=== PATIENT | male | born 1990 | race African-American/Black ===

== ENCOUNTER 2016-10-23 12:37 | Emergency (ER) | payer MEDICARE, OTHER ==
[~2016-10-23] VITALS: Ht 170.2 cm; Wt 85.0 kg
[~2016-10-23 12:37] MED LIST: CINA90TA PO; Levaquin; MAGN400C PO; PRE10 PO; PROG PO; SEVE800T7 PO; ZAN150T PO
[2016-10-23 12:42] VITALS: BP 118/76; PULSE 103; RESP 16; O2SAT 98
--- NOTE | 2016-10-23 14:12 | ED.REPORT ---
HPI-General Illness Date of Service October 23, 2016 ED Provider: Dillon Garcia DO The patient is a 25 year old male with history of kidney disease on dialysis and hypertension, who presents to the emergency department concerned he may have accidentally absorbed rat poison. The patient put out rat poison at home earlier today. He did not get the poison close to his mouth but he he did have to break it up into pieces. 1 hour after putting the rat poison he started to feel short of breath and lightheaded. He also noticed palpitations and mild abdominal discomfort. The patient had similar symptoms in the past prior to passing out. In the past it has been due to taking too much fluid off in dialysis. Nursing Notes Stated Complaint: POSS RAT POISONING Chief Complaint: General Complaint Nursing Notes Reviewed: Yes Allergies: Coded Allergies: codeine (Verified Adverse Reaction, Intermediate, 10/23/16) ALREADY HAVING DIFFICULTY WITH NAUSEA AND VOMITING. THIS MEDICATION SHOULD BE AVOIDED Scheduled Cinacalcet HCl (Sensipar) 90 Mg Tablet 90 MG PO HS Magnesium Oxide (Magnesium) 400 Mg Capsule 400 MG PO AM PredniSONE-Expunged Drug, Do Not Renew! (PredniSONE-Expunged Drug, Do Not Renew! ) 10 Mg Tab 15 MG PO AM TAKE WITH FOOD Ranitidine 150 MG Tablet (Zantac 150 MG Tablet) 150 Mg Tab 150 MG PO DAILY Sevelamer Carbonate (Renvela) 800 Mg Tablet 800 MG PO TID Tacrolimus-Expunged Drug, Do Not Renew! (Prograf-Expunged Drug, Do Not Renew!) 0.5 Mg Capsule 2 MG PO BID DOSE=0.05MG/KG (NO HT/WT AVAILABLE AT TIME OF ENTRY) Miscellaneous Medications ([Levaquin]) Take one more dose 10/21, then stop General Time Seen by MD: 14:04 Chief Complaint Other (concern for rat poison absorption) Hx Obtained From: Patient Arrived By: Walk-in Sudden in Onset?: Yes Onset Occurred: 1 - 4 hours ago Symptom Duration: Since onset Location: : Abdomen Quality: Painful Severity: Current: Mild Severity: Maximum: Mild Recent Healthcare: No recent doctor visit, No recent hospitalization Similar Sx Previous: No Past Medical History Past Medical History Notes: Sees Dr. Lonnie Greer (nephrology) at PCP: Dr. Larios Chemistry Tutor: Dr. 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 Thursday, Thursday and Thursday. dialysis thru AV fistula. 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 not currently on any BP medications. 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 Left brachio-cephalic A/V fistula 2. Kidney Biopsy 3. Kidney Transplant Family History HTN Smoking History Never Smoker Social History Other Social History: Good social support, Local resident Ambulatory Status Independent Review of Systems Full Review of Systems Respiratory: Reports: Shortness of breath Cardiovascular: Reports: Palpitations GI: Reports: Abdominal pain (mild) Neurologic: Reports: Lightheaded Complete sys rev & neg: except as marked. Physical Exam Vital Signs Vital Signs Date Time Temp Pulse Resp B/P Pulse Ox O2 Delivery O2 Flow Rate FiO2 10/23/16 16:27 85 14 105/61 100 Room Air 10/23/16 12:42 36.5 103 16 118/76 98 Room Air Initial VS: Reviewed Head / Eyes: Atraumatic, Normocephalic, PERRL ENT: Mucous membranes moist, Conjunctiva normal, No scleral icterus Neck: Supple, Non-tender, Full range of motion Respiratory: No respiratory distress Abdomen / GI: Soft, Non-tender, No guarding, No rebound, No distention Lymphatic: No lymphadenopathy Extremities: Vascular intact, Neuro intact, No swelling, No tenderness Skin: Warm, Dry, No cyanosis Neurologic: Alert, Oriented, Nonfocal Psychiatric: Mood/affect normal, Behavior normal, Normal thought content General/Constitutional: Awake, Alert, Cooperative Heart Rate / Rhythm: Positive: Tachycardia Upper Extremities Upper Extremity / MS: Neurologic intact, Vascular intact Fistula in left upper arm with good thrill. Interpretation & Diagnostics Lab Results Interpretation Result Diagram: 10/23/16 1450 10/23/16 1450 Test 10/23/16 14:50 White Blood Count 3.0th/mm3 (3.8-10.1) Red Blood Count 3.91mil/mm3 (4.40-5.80) Hemoglobin 12.8g/dL (13.8-17.2) Hematocrit 39.2% (41.0-50.0) Mean Corpuscular Volume 100.3fL (81-100) Mean Corpuscular Hemoglobin 32.7pg (27.0-35.0) Mean Corpuscular Hemoglobin Concent 32.7% (32.0-37.0) Red Cell Distribution Width 13.6% (12.3-15.4) Platelet Count 122bil/L (150-400) Neutrophils (%) (Auto) 62.3% (40-74) Lymphocytes (%) (Auto) 29.1% (14-46) Monocytes (%) (Auto) 7.0% (4-12) Eosinophils (%) (Auto) 1.3% (0-5) Basophils (%) (Auto) 0.3% (0-3) Sodium Level 142mEq/L (134-144) Potassium Level 4.5mEq/L (3.5-5.2) Chloride Level 98mEq/L (97-108) Carbon Dioxide Level 26mmol/L (18-29) Blood Urea Nitrogen 38mg/dL (6-20) Creatinine 11.59mg/dL (0.76-1.27) Estimat Glomerular Filtration Rate 6mL/min (>59) Glucose Level 85mg/dL (60-99) Calcium Level 10.0mg/dL (8.5-10.1) Total Bilirubin 0.5mg/dL (0.0-1.2) Aspartate Amino Transf (AST/SGOT) 10U/L (0-50) Alanine Aminotransferase (ALT/SGPT) 7U/L (0-44) Alkaline Phosphatase 230U/L (25-150) Total Protein 8.6g/dL (6.4-8.4) Albumin 4.6g/dL (3.4-5.0) ECG Interpretation ECG Interpretation: Sinus rhythm with a rate of 72 Time: 14:44 Interpreted by: ED physician Re-Eval/Medical Decision Med Decision/Clinical Course Essentially this is a near syncopal episode with a minimal exposure to rat poison. Seems that this may be due to over dialysis, and electro-lytes and EKG are unremarkable. He will be discharged and return and follow-up precautions are given. Source of Hx: Old records Re-Evaluation/Progress Note: Rechecked the patient. Discussed results, diagnosis, and plan for disposition. All questions were addressed. Counseled Regarding: Diagnosis, Lab results, Need for follow-up, When/why to return to ED Discharge & Departure Primary Impression: Near syncope Disposition: Home Discharge Condition All VS Reviewed: Yes Condition: Stable Additional Instructions: Thank you for entrusting us with your care today. Your workup today included an EKG and blood work. Your results are reassuring. Followup with your regular doctor in the next few days for re-evaluation. Seek care sooner for any new or concerning symptoms. Referrals: Ravi Larios MD (PCP) Scribe Attestation Portions of this note were transcribed by Xi Bowie. I, Dr. Garcia personally performed the history, physical exam and medical decision-making; I reviewed and confirmed the accuracy of the information in the transcribed note. Signed by: Kimberly Lim, 10/23/2016 at 1505. copies to: Ravi Larios MD, Timothy S DO October 23, 2016 14:12 Xi Bowie October 23, 2016 14:33
[2016-10-23 15:01] LABS: BASOPHILS % (AUTO) 0.3 % (0-3); EOSINOPHILS % (AUTO) 1.3 % (0-5); Mean Corpuscular Hemoglobin 32.7 pg (27.0-35.0); Mean Corpuscular Volume 100.3 fL (81-100); NEUTROPHILS % (AUTO) 62.3 % (40-74); Platelet Count 122 bil/L (150-400)
[2016-10-23 16:27] VITALS: BP 105/61; PULSE 85; RESP 14; O2SAT 100
== END 2016-10-23 16:28 | disposition home or self-care (01) ==
LOC: SED 12:37
DX: R55 Syncope and collapse (principal); I12.0 Hypertensive chronic kidney disease with stage 5 chronic kidney disease or end stage renal disease; N18.9 Chronic kidney disease, unspecified; E21.3 Hyperparathyroidism, unspecified; D63.1 Anemia in chronic kidney disease; R06.02 Shortness of breath; Z99.2 Dependence on renal dialysis; Z88.5 Allergy status to narcotic agent

== ENCOUNTER 2016-10-24 16:06 | Emergency (ER) | payer MEDICARE, OTHER ==
[~2016-10-24] VITALS: Ht 170.2 cm; Wt 85.0 kg
[2016-10-24 16:24] VITALS: BP 89/60; PULSE 112; RESP 20; O2SAT 98
[2016-10-24 19:25] LABS: Mean Corpuscular Volume 101 fL (81-100)
[2016-10-24 19:26] LABS: BASOPHILS % (AUTO) 0 % (0-3); EOSINOPHILS % (AUTO) 1 % (0-5); MONOCYTES % (AUTO) 7 % (4-12); Mean Corpuscular Hemoglobin 32.6 pg (27.0-35.0); NEUTROPHILS % (AUTO) 46 % (40-74); Platelet Count 138 bil/L (150-400)
--- NOTE | 2016-10-24 20:38 | ED.REPORT ---
HPI-General Illness Date of Service October 24, 2016 ED Provider: Doc,Ed MD The patient is a 25 year old male with history of kidney disease on dialysis, hyperactive parathyroid, and hypertension, who presents to the emergency department complaining of bilateral flank pain that began yesterday. The pain radiates into his abdomen. The pain is spasmatic and worse with twisting. He denies any known injury or trauma. He denies nausea, vomiting, diarrhea, fever or chills. He last dialyzed this morning. Nursing Notes Stated Complaint: ABDOMINAL AND LOWER BACK PAIN Chief Complaint: Male Abdominal Pain Nursing Notes Reviewed: Yes Allergies: Coded Allergies: codeine (Verified Adverse Reaction, Intermediate, 10/23/16) ALREADY HAVING DIFFICULTY WITH NAUSEA AND VOMITING. THIS MEDICATION SHOULD BE AVOIDED Scheduled Cinacalcet HCl (Sensipar) 90 Mg Tablet 90 MG PO HS Magnesium Oxide (Magnesium) 400 Mg Capsule 400 MG PO AM PredniSONE-Expunged Drug, Do Not Renew! (PredniSONE-Expunged Drug, Do Not Renew! ) 10 Mg Tab 15 MG PO AM TAKE WITH FOOD Ranitidine 150 MG Tablet (Zantac 150 MG Tablet) 150 Mg Tab 150 MG PO DAILY Sevelamer Carbonate (Renvela) 800 Mg Tablet 800 MG PO TID Tacrolimus-Expunged Drug, Do Not Renew! (Prograf-Expunged Drug, Do Not Renew!) 0.5 Mg Capsule 2 MG PO BID DOSE=0.05MG/KG (NO HT/WT AVAILABLE AT TIME OF ENTRY) Miscellaneous Medications ([Levaquin]) Take one more dose 10/21, then stop General Time Seen by MD: 20:38 Chief Complaint Other (bilateral flank pain) Hx Obtained From: Patient Arrived By: Walk-in Sudden in Onset?: Yes Onset Occurred: Yesterday Symptom Duration: Since onset Location: : Back Quality: Painful Radiation: : Abdomen Severity: Current: Moderate Severity: Maximum: Moderate Recent Healthcare: No recent hospitalization, Recent doctor visit Similar Sx Previous: No Past Medical History Past Medical History Notes: Sees Dr. Lonnie Greer (nephrology) at PCP: Dr. Larios Security Systems Administrator: Dr. 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 Thursday, Thursday and Thursday. dialysis thru AV fistula. 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 not currently on any BP medications. 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 Left brachio-cephalic A/V fistula 2. Kidney Biopsy 3. Kidney Transplant Family History HTN Smoking History Never Smoker Social History Other Social History: Good social support, Local resident Ambulatory Status Independent Review of Systems Full Review of Systems GI: Reports: Abdominal pain, Denies: Diarrhea, Nausea, Vomiting Male: Reports Flank pain Musculoskeletal: Reports: Back pain Complete sys rev & neg: except as marked. Physical Exam Vital Signs Vital Signs Date Time Temp Pulse Resp B/P Pulse Ox O2 Delivery O2 Flow Rate FiO2 10/24/16 16:24 36.4 112 20 89/60 98 Room Air Initial VS: Reviewed Interpretation & Diagnostics Lab Results Interpretation Result Diagram: 10/24/16 1739 Test 10/24/16 17:39 White Blood Count 3.2th/mm3 (3.8-10.1) Red Blood Count 3.89mil/mm3 (4.40-5.80) Hemoglobin 12.7g/dL (13.8-17.2) Hematocrit 39.3% (41.0-50.0) Mean Corpuscular Volume 101fL (81-100) Mean Corpuscular Hemoglobin 32.6pg (27.0-35.0) Mean Corpuscular Hemoglobin Concent 32.3% (32.0-37.0) Red Cell Distribution Width 13.5% (12.3-15.4) Platelet Count 138bil/L (150-400) Neutrophils (%) (Auto) 46% (40-74) Lymphocytes (%) (Auto) 46% (14-46) Monocytes (%) (Auto) 7% (4-12) Eosinophils (%) (Auto) 1% (0-5) Basophils (%) (Auto) 0% (0-3) Re-Eval/Medical Decision Source of Hx: Old records Counseled Regarding: Diagnosis Discharge & Departure Discharge Condition All VS Reviewed: Yes Condition: Stable Referrals: Ravi Larios MD (PCP) Scribe Attestation Portions of this note were transcribed by Xi Bowie. IDr. Perez personally performed the history, physical exam and medical decision-making; I reviewed and confirmed the accuracy of the information in the transcribed note. Signed by: Kimberly Lim, 10/24/2016 at [Time]. copies to: Ravi Larios MD, Gary R DO October 24, 2016 20:38 Xi Bowie October 24, 2016 20:46
[2016-10-24 21:10] LABS: Magnesium 1.7 mg/dL (1.6-2.6)
--- NOTE | 2016-10-24 21:25 | ED.REPORT ---
HPI-Abd Pain M Under 40 Date of Service October 24, 2016 ED Provider: Shun Larry DO A 25 year old male with a history of hypertension and CKD on dialysis presents to the ED with lower abdomen and lower back pain onset two days ago. The pain is exacerbated by lateral rotation of the trunk. The patient denies nausea, vomiting, diarrhea, weakness, numbness, bowel incontinence, urinary incontinence , recent injury/trauma, or other symptoms. He was seen in the ED yesterday after a near-syncopal episode. The patient also dialyzed yesterday. He makes no urine at baseline. Nursing Notes Stated Complaint: ABDOMINAL AND LOWER BACK PAIN Chief Complaint: Male Abdominal Pain Nursing Notes Reviewed: Yes Allergies: Coded Allergies: codeine (Verified Adverse Reaction, Intermediate, 10/23/16) ALREADY HAVING DIFFICULTY WITH NAUSEA AND VOMITING. THIS MEDICATION SHOULD BE AVOIDED Scheduled Cinacalcet HCl (Sensipar) 90 Mg Tablet 90 MG PO HS Magnesium Oxide (Magnesium) 400 Mg Capsule 400 MG PO AM PredniSONE-Expunged Drug, Do Not Renew! (PredniSONE-Expunged Drug, Do Not Renew! ) 10 Mg Tab 15 MG PO AM TAKE WITH FOOD Ranitidine 150 MG Tablet (Zantac 150 MG Tablet) 150 Mg Tab 150 MG PO DAILY Sevelamer Carbonate (Renvela) 800 Mg Tablet 800 MG PO TID Tacrolimus-Expunged Drug, Do Not Renew! (Prograf-Expunged Drug, Do Not Renew!) 0.5 Mg Capsule 2 MG PO BID DOSE=0.05MG/KG (NO HT/WT AVAILABLE AT TIME OF ENTRY) Miscellaneous Medications ([Levaquin]) Take one more dose 10/21, then stop General Time Seen by MD: 21:22 Chief Complaint Abdominal pain, Other (Back Pain) Hx Obtained From: Patient Arrived By: Walk-in Onset Occurred: 2 days ago Symptom Duration: Since onset Location: : Abdomen lower: Back (Lower) Quality: Painful Severity: Current: Moderate Severity: Maximum: Moderate Pertinent Negative: Relieved by nothing Recent Healthcare: Recent doctor visit Past Medical History Past Medical History Notes: Sees Dr. Lonnie Greer (nephrology) at PCP: Dr. Larios Medical Associate: Dr. 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 Thursday, Thursday and Thursday. dialysis thru AV fistula. 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 not currently on any BP medications. 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 Left brachio-cephalic A/V fistula 2. Kidney Biopsy 3. Kidney Transplant Family History HTN Smoking History Never Smoker Social History Other Social History: Good social support, Local resident Ambulatory Status Independent Review of Systems Constitutional: Denies: Fever Respiratory: Denies: Non-productive cough, Shortness of breath GI: Reports: Abdominal pain (Lower), Denies: Diarrhea, Nausea, Vomiting Musculoskeletal: Reports: Back pain (Lower) Complete sys rev & neg: except as marked. Neurologic: Denies: Bladder dysfunction, Bowel dysfunction, Numbness, Weakness Physical Exam Initial Vital Signs Vital Signs (First) Date Time Temp Pulse Resp B/P Pulse Ox O2 Delivery O2 Flow Rate FiO2 10/24/16 16:24 36.4 112 20 89/60 98 Room Air Initial VS: Reviewed Head / Eyes: Atraumatic, Normocephalic ENT: Conjunctiva normal, No scleral icterus Neck: Supple, Full range of motion Skin: Warm, Dry, No cyanosis Neurologic: Alert, Oriented, Nonfocal Psychiatric: Mood/affect normal, Behavior normal, Normal thought content General/Constitutional: Awake, Alert, No acute distress Respiratory / Chest: Breath sounds NL, Breath sounds = bilat, No respiratory distress Cardiovascular: Heart rate NL, Regular rhythm, Heart sounds NL Abdomen: Atraumatic, Soft Tenderness/Guarding/Rebound: Positive: Tender RLQ... Back: Atraumatic, Full range of motion Flank / Spine / Paraspinal: Positive: Flank tender R Interpretation & Diagnostics Lab Results Interpretation Result Diagram: 10/24/16 1739 10/24/16 1739 Test 10/24/16 17:39 White Blood Count 3.2th/mm3 (3.8-10.1) Red Blood Count 3.89mil/mm3 (4.40-5.80) Hemoglobin 12.7g/dL (13.8-17.2) Hematocrit 39.3% (41.0-50.0) Mean Corpuscular Volume 101fL (81-100) Mean Corpuscular Hemoglobin 32.6pg (27.0-35.0) Mean Corpuscular Hemoglobin Concent 32.3% (32.0-37.0) Red Cell Distribution Width 13.5% (12.3-15.4) Platelet Count 138bil/L (150-400) Neutrophils (%) (Auto) 46% (40-74) Lymphocytes (%) (Auto) 46% (14-46) Monocytes (%) (Auto) 7% (4-12) Eosinophils (%) (Auto) 1% (0-5) Basophils (%) (Auto) 0% (0-3) Sodium Level 139mEq/L (134-144) Potassium Level 4.4mEq/L (3.5-5.2) Chloride Level 96mEq/L (97-108) Carbon Dioxide Level 24mmol/L (18-29) Blood Urea Nitrogen 21mg/dL (6-20) Creatinine 7.61mg/dL (0.76-1.27) Estimat Glomerular Filtration Rate 9mL/min (>59) Glucose Level 88mg/dL (60-99) Calcium Level 10.3mg/dL (8.5-10.1) Magnesium Level 1.7mg/dL (1.6-2.6) Total Bilirubin 0.4mg/dL (0.0-1.2) Aspartate Amino Transf (AST/SGOT) 14U/L (0-50) Alanine Aminotransferase (ALT/SGPT) 9U/L (0-44) Alkaline Phosphatase 233U/L (25-150) Total Protein 9.2g/dL (6.4-8.4) Albumin 4.7g/dL (3.4-5.0) Lipase 42U/L (13-60) CT Abd / Pelvis Interpretation IMPRESSION: No signs of appendicitis, diverticulitis, mechanical small bowel obstruction. Shrunken atrophic calcified right lower quadrant renal transplant. Other findings above. Transmitted to ED at 10/24/2016 - 11:46:15 PM PDT Study type: Abdominal CT IV contrast Interpretation / Wet Read by: Interpret - Radiologist (Gilma Melton M.D. ) Re-Eval/Medical Decision Source of Hx: Old records Re-Evaluation/Progress #1: Time of Eval: 23:51 Patient Status: Condition improved Re-Evaluation/Progress Note: Patient rechecked. He is feeling better. Re-Evaluation/Progress #2: Time of Eval: 00:05 Patient Status: Condition improved Re-Evaluation/Progress Note: Discussed with patient lab and CT results, diagnosis, and plan for discharge. Follow-up and return to the ER instructions given. Patient agrees with plan for care and all questions were addressed. Consultation : Referral / Consult Name: Shahriar Moss MD Consulted With: Nephrology Call Returned at: 21:40 Amusement Or Recreation Card Checker: Agrees with eval, Agrees with plan Note: Discussed patient's case Counseled Regarding: Diagnosis, Lab results, Need for follow-up, When/why to return to ED Patient Discharge & Departure Primary Impression: Back pain Back pain location: low back pain Chronicity: acute Additional Impression: Abdominal pain Abdominal location: right lower quadrant Qualified Code: R10.31 - Right lower quadrant pain Disposition: Home Discharge Condition All VS Reviewed: Yes Condition: Improved Patient Instructions: Acute Abdominal Pain (ED), Acute Low Back Pain (GEN) Additional Instructions: The CT scan was reassuring. The cause of your pain is uncertain. Off work until Thursday. Do not drink alcohol or drive tonight as you have been given sedating medication. 1-2 Percocet every six hours as needed for pain. Do not drink alcohol, drive, or consume acetaminophen while taking Percocet. Increase the natural fiber in your diet or take a stool softener to prevent constipation. Call the dialysis center tomorrow for dialysis after receiving the contrast today. Dr. Moss is aware that you were seen and received contrast. Call your primary care provider on Thursday for a follow-up appointment. Return to the ER with any new or worsening symptoms. Referrals: Ravi Larios MD (PCP) Shahriar Moss MD Attestation Portions of this note were transcribed by Caitlin Baldwin. I, Dr. Larry, personally performed the history, physical exam, and medical decision-making; I reviewed and confirmed the accuracy of the information in the transcribed note. Signed by: Kimberly Herrera, 10/25/2016, 01:00 copies to: Ravi Larios MD; Shahriar Moss MD, Todd P DO October 24, 2016 21:25 CAITLIN BALDWIN October 24, 2016 21:37
[2016-10-24] MEDS ORDERED: Iohexol 300 mg/mL 30 mL Inj PO ONE (21:30)
[2016-10-24] MEDS ORDERED: HYDROmorphone 0.5 mg/0.5 mL iSecure Syringe IVPUSH PRN (21:30)
[2016-10-24] MEDS ORDERED: fentaNYL-PF 50 mCg/mL 2 mL Inj IVPUSH PRN (21:35)
[2016-10-24 22:00] VITALS: BP 99/60; PULSE 100; RESP 16; O2SAT 98
[2016-10-25] MEDS ORDERED: _oxyCODONE/APAP 5-325 mg Tablet PO PRN (00:15)
[2016-10-25] MEDS ORDERED: Sodium Chloride LOK Flush 10 mL Syringe IVFLUSH SCH (00:30)
[2016-10-25 00:42] VITALS: BP 97/59; PULSE 101; RESP 16; O2SAT 99
--- NOTE | 2016-10-25 09:31 | DRSVH ---
PROCEDURE: CT ABDOMEN AND PELVIS WITH CONTRAST ([id number]) INDICATIONS: RLQ and right flank pain, renal failure is chronic TECHNIQUE: After the administration of oral and intravenous contrast, 5 mm thick sections acquired from the diap hragms to the symphysis. 5 mm thick coronal and sagittal reformats were performed. For radiation do se reduction, the following was used: automated exposure control, adjustment of mA and/or kV accordi ng to patient size. COMPARISON: None. FINDINGS: Image quality: Excellent. ABDOMEN: Lung bases: Lung bases are clear. Heart size is normal. Solid organs: Liver and spleen are normal in size and enhancement. Gallbladder negative. Biliary s ystem is non-dilated. Pancreas enhances normally. No adrenal nodules. Atrophic partially calcified right lower quadrant renal transplant. The kidneys are not visualized. Peritoneum and bowel: Stomach, small bowel, and colon loops are normal in caliber and wall thickness . No free fluid or air. Normal appendix. Possible small hiatal hernia although technically indeterm inate Nodes and vessels: No retroperitoneal or mesenteric adenopathy. Aorta and inferior vena cava are no rmal in caliber. Miscellaneous: No ventral hernias. PELVIS: Genitourinary: Bladder is decompressed therefore unremarkable there is mild wall prominence however t his could be due to collapsed state. Recommend correlation to urinalysis Miscellaneous: No inguinal hernias or adenopathy. Bones: No suspicious bony lesions. No vertebral body compression fractures. IMPRESSION: No acute abnormality seen. Atrophic calcified right lower quadrant renal transplant. Possible bladder wall thickening however this could be due to collapsed state. Recommend correlation to urinalysis as needed. Dictated by: Jean Marie Holt M.D. on 10/25/2016 at 9:19 Approved by: Jean Marie Holt M.D. on 10/25/2016 at 9:30
== END 2016-10-25 00:43 | disposition home or self-care (01) ==
LOC: SED 16:06
DX: M54.5 Low back pain (principal); R10.31 Right lower quadrant pain; I12.0 Hypertensive chronic kidney disease with stage 5 chronic kidney disease or end stage renal disease; N18.9 Chronic kidney disease, unspecified; Z88.5 Allergy status to narcotic agent; Z94.0 Kidney transplant status
CPT/HCPCS: 36415; 74177; 80053; 83690; 83735; 85025; 96374; 99285; J3010; Q9967

== ENCOUNTER 2016-10-30 10:23 | Emergency (ER) | payer MEDICARE, OTHER ==
[~2016-10-30] VITALS: Ht 170.2 cm; Wt 85.0 kg
[2016-10-30 10:25] VITALS: BP 108/73; PULSE 100; RESP 12; O2SAT 100
--- NOTE | 2016-10-30 10:41 | ED.REPORT ---
HPI-Chest Pain Under 40 Date of Service October 30, 2016 ED Provider: Didier Killian MD The patient is a 25 year old male with history of kidney disease on dialysis, hyperparathyroidism and hypertension, who presents to the emergency department complaining of chest pain that has been intermittent over the last few days. The pain is located to his LUQ/lower left chest and sometimes radiates into his epigastric/substernal region. The episodes last from a few minutes up to 30 minutes. Nothing seems to bring on the episodes. At most severe his pain has been an 8/10. He is not currently in any pain. With the episodes he has also noticed some shortness of breath. His symptoms are not worse with exertion. He denies recent injuries or trauma. He denies extremity pain, back pain, nausea, vomiting, fever, cough, or diaphoresis. He last dialyzed this morning. Nursing Notes Stated Complaint: CHEST PAIN Chief Complaint: Chest Pain Nursing Notes Reviewed: Yes ([facility] not reconciled) Allergies: Coded Allergies: codeine (Verified Adverse Reaction, Intermediate, 10/23/16) ALREADY HAVING DIFFICULTY WITH NAUSEA AND VOMITING. THIS MEDICATION SHOULD BE AVOIDED Scheduled Cinacalcet HCl (Sensipar) 90 Mg Tablet 90 MG PO HS Magnesium Oxide (Magnesium) 400 Mg Capsule 400 MG PO AM PredniSONE-Expunged Drug, Do Not Renew! (PredniSONE-Expunged Drug, Do Not Renew! ) 10 Mg Tab 15 MG PO AM TAKE WITH FOOD Ranitidine 150 MG Tablet (Zantac 150 MG Tablet) 150 Mg Tab 150 MG PO DAILY Sevelamer Carbonate (Renvela) 800 Mg Tablet 800 MG PO TID Tacrolimus-Expunged Drug, Do Not Renew! (Prograf-Expunged Drug, Do Not Renew!) 0.5 Mg Capsule 2 MG PO BID DOSE=0.05MG/KG (NO HT/WT AVAILABLE AT TIME OF ENTRY) Miscellaneous Medications ([Levaquin]) Take one more dose 10/21, then stop General Time Seen by MD: 10:35 Chief Complaint Chest pain Hx Obtained From: Patient Arrived By: Walk-in Sudden in Onset?: No Onset Occurred: 3 days ago Symptom Duration: Intermittent Location: : Chest left Quality: Painful Radiation: : Abdomen (epigastric) Severity: Current: No pain currently Severity: Maximum: Pain level 8 out of 10 Recent Healthcare: No recent hospitalization, Recent doctor visit Similar Sx Previous: Yes Past Medical History Past Medical History Notes: Sees Dr. Lonnie Greer (nephrology) at PCP: Dr. Larios Plant [employer] Professor: Dr. 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 Thursday, Thursday and Thursday. dialysis thru AV fistula. 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 not currently on any BP medications. 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 Left brachio-cephalic A/V fistula 2. Kidney Biopsy 3. Kidney Transplant Family History HTN Smoking History Never Smoker Social History Drug Use: Denies drug use Other Social History: Good social support, Frequent ED visitor, Local resident Ambulatory Status Independent Review of Systems Constitutional: Denies: Fever Respiratory: Reports: Shortness of breath, Denies: Non-productive cough Cardiovascular: Reports: Chest pain GI: Reports: Abdominal pain, Denies: Nausea, Vomiting Musculoskeletal: Denies: Extremity pain Skin: Denies Diaphoresis Complete sys rev & neg: except as marked. Physical Exam Initial Vital Signs Vital Signs (First) Date Time Temp Pulse Resp B/P Pulse Ox O2 Delivery O2 Flow Rate FiO2 10/30/16 10:25 36.6 100 12 108/73 100 Room Air Initial VS: Reviewed, Vital signs normal Head / Eyes: Atraumatic, Normocephalic, PERRL ENT: Mucous membranes moist, Conjunctiva normal, No scleral icterus Neck: Supple, Non-tender, Full range of motion Abdomen / GI: Soft, Non-tender, No guarding, No rebound, No distention Lymphatic: No lymphadenopathy Extremities: Vascular intact, Neuro intact, No swelling, No tenderness Skin: Warm, Dry, No cyanosis Neurologic: Alert, Oriented, Nonfocal Psychiatric: Mood/affect normal, Behavior normal, Normal thought content General/Constitutional: Awake, Alert, No acute distress, Cooperative Respiratory / Chest: Atraumatic, Breath sounds NL, Breath sounds = bilat, No respiratory distress, No rales, No rhonchi, No wheezing, No chest tenderness Cardiovascular: Heart rate NL, Regular rhythm, Heart sounds NL, No gallop, No murmurs, No rubs, Peripheral circulation NL, Pulses = bilaterally, No gross BP differential Upper Extremity / MS: Neurologic intact, Vascular intact AV fistula in left upper extremity. Interpretation & Diagnostics Lab Results Interpretation Result Diagram: 10/30/16 1054 10/30/16 1054 Test 10/30/16 10:54 10/30/16 11:06 White Blood Count 2.7th/mm3 (3.8-10.1) Red Blood Count 3.91mil/mm3 (4.40-5.80) Hemoglobin 12.7g/dL (13.8-17.2) Hematocrit 38.7% (41.0-50.0) Mean Corpuscular Volume 99.0fL (81-100) Mean Corpuscular Hemoglobin 32.5pg (27.0-35.0) Mean Corpuscular Hemoglobin Concent 32.8% (32.0-37.0) Red Cell Distribution Width 12.9% (12.3-15.4) Platelet Count 117bil/L (150-400) Neutrophils (%) (Auto) 41.9% (40-74) Lymphocytes (%) (Auto) 47.4% (14-46) Monocytes (%) (Auto) 7.8% (4-12) Eosinophils (%) (Auto) 2.2% (0-5) Basophils (%) (Auto) 0.7% (0-3) Sodium Level 138mEq/L (134-144) Potassium Level 3.8mEq/L (3.5-5.2) Chloride Level 94mEq/L (97-108) Carbon Dioxide Level 28mmol/L (18-29) Blood Urea Nitrogen 9mg/dL (6-20) Creatinine 4.09mg/dL (0.76-1.27) Estimat Glomerular Filtration Rate 19mL/min (>59) Glucose Level 88mg/dL (60-99) Calcium Level 9.9mg/dL (8.5-10.1) Total Bilirubin 0.5mg/dL (0.0-1.2) Aspartate Amino Transf (AST/SGOT) 19U/L (0-50) Alanine Aminotransferase (ALT/SGPT) 14U/L (0-44) Alkaline Phosphatase 258U/L (25-150) Troponin T 0.010ug/L (0.0-0.011) Total Protein 9.0g/dL (6.4-8.4) Albumin 4.5g/dL (3.4-5.0) Hold Martin Top Tube Received (Received) Lab Results Interpretation: She nonspecific leukocytosis CMP chronic renal failure Troponin normal (and in the setting of multiple days of symptoms, serial biomarkers are not indicated) ECG Interpretation ECG Interpretation: Sinus rhythm with a rate of 81 Time: 10:48 Interpreted by: ED physician X-Ray Chest Interpretation View: 1 view Interpretation / Wet Read by: Wet read ED physician NL X-Ray Chest Findings: No infiltrate, No acute disease Re-Eval/Medical Decision Med Decision/Clinical Course This is a 25-year-old male does have 3 renal failure on dialysis who presents to get "checked out". 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 He has no cardiac risk factors beyond the dialysis and hypertension-he has no PE risk factors or clinical features suggest venous thromboembolism. He has had no fever, cough, shortness of breath. His exam is normal. His EKG is normal. His chest x-ray is normal. His blood work reveals only the renal insufficiency. His troponin is negative, with multiple days of symptoms, atypical presentation, the patient is a low heart score and is appropriate for discharge. Routine precautions were reviewed. Patient's discharge in good condition. Source of Hx: Old records Re-Evaluation/Progress : Time of Eval: 11:44 Re-Evaluation/Progress Note: Rechecked the patient. Discussed results, diagnosis, and plan for discharge. All questions were addressed. Differential Diagnosis: Positive: Chest pain, acute, Negative: Acute coronary syndrome, Acute myocardial infarct, Dysrhythmia, Esophageal rupture, Gun shot wound chest, Hypertroph cardiomyopathy, Pneumonia, Pneumothorax, Pulmonary edema, Pulmonary embolism, Stab wound chest Counseled Regarding: Diagnosis, Lab results, Need for follow-up, When/why to return to ED Discharge & Departure Primary Impression: Chest pain Chest pain type: unspecified Qualified Code: R07.9 - Chest pain, unspecified Disposition: Home Discharge Condition All VS Reviewed: Yes Condition: Stable Additional Instructions: 1. A dangerous cause of the chest discomfort was not identified. 2. Your x-ray, EKG and troponin were all normal-there are no markers are findings suggest a heart condition. 3. We are not finding any reason to agency legal counsel or avoid your scheduled vacation. 4. We expect symptoms to improve with time in this setting. 5. Continue current care and activities. 6. If he developed new or worsening symptoms, fever, difficulty breathing, worsening shortness of breath, etc.-you should be seen in recheck - although this is not expected. Referrals: Ravi Larios MD (PCP) Scribe Attestation Portions of this note were transcribed by Xi Bowie. I, Dr. Killian personally performed the history, physical exam and medical decision-making; I reviewed and confirmed the accuracy of the information in the transcribed note. Signed by: Kimberly Lim, 10/30/2016 at 1215. copies to: Ravi Larios MD, Matthew F MD October 30, 2016 10:41 Xi Bowie October 30, 2016 10:50
[2016-10-30 10:57] LABS: BASOPHILS % (AUTO) 0.7 % (0-3); EOSINOPHILS % (AUTO) 2.2 % (0-5); MONOCYTES % (AUTO) 7.8 % (4-12); Mean Corpuscular Hemoglobin 32.5 pg (27.0-35.0); NEUTROPHILS % (AUTO) 41.9 % (40-74); Platelet Count 117 bil/L (150-400)
[2016-10-30 11:18] LABS: TROPONIN T 0.01 ug/L (0.0-0.011)
[2016-10-30 11:54] VITALS: BP 104/54; PULSE 80; RESP 15; O2SAT 100
--- NOTE | 2016-10-30 12:06 | DRSVH ---
PROCEDURE: X-RAY CHEST ONE VIEW, PORTABLE ([id number]) INDICATIONS: CHEST PAIN TECHNIQUE: One view of the chest was acquired. COMPARISON: [facility], CR, CHEST 2VW, 06/28/2014, 19:05. FINDINGS: Surgical changes and devices: None. Lungs and pleura: No pleural effusions or pneumothorax. Lungs are clear. Mediastinum: Mediastinal contours appear normal. Heart size is normal. Bones and chest wall: No suspicious bony lesions. Overlying soft tissues appear unremarkable. IMPRESSION: Negative chest. No acute cardiopulmonary process is evident. Dictated by: Franco Hutchison M.D. on 10/30/2016 at 11:04 Approved by: Franco Hutchison M.D. on 10/30/2016 at 11:04
== END 2016-10-30 11:55 | disposition home or self-care (01) ==
LOC: SED 10:23
DX: R07.9 Chest pain, unspecified (principal); I12.9 Hypertensive chronic kidney disease with stage 1 through stage 4 chronic kidney disease, or unspecified chronic kidney disease; N18.9 Chronic kidney disease, unspecified; D63.1 Anemia in chronic kidney disease; N25.81 Secondary hyperparathyroidism of renal origin; Z99.2 Dependence on renal dialysis; Z94.0 Kidney transplant status; Z79.52 Long term (current) use of systemic steroids; Z88.5 Allergy status to narcotic agent

== ENCOUNTER 2016-11-10 08:07 | Emergency (ER) | payer MEDICARE, OTHER ==
[~2016-11-10] VITALS: Ht 170.2 cm; Wt 86.0 kg
[2016-11-10 08:15] VITALS: BP 127/70; PULSE 86; RESP 15; O2SAT 100
--- NOTE | 2016-11-10 08:23 | ED.REPORT ---
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 Oxygen levels were stable while at dialysis. He has had "chest discomfort" for the past 3 hrs and it progressed to pain about prison through dialysis. He has been experiencing dull, chest pressure for 5 days. Upon examination at the ED, pt is still experiencing " chest pressure" but not as severe as when he was at dialysis. He was seen at the ED in [place] on Thursday for similar symptoms with no acute findings. Pt was at [facility] on 10/30/16 for similar symptoms at which time there were no acute findings. Nursing Notes Stated Complaint: CHEST PAIN Chief Complaint: Chest Pain Nursing Notes Reviewed: Yes Allergies: Coded Allergies: codeine (Verified Adverse Reaction, Intermediate, 10/23/16) ALREADY HAVING DIFFICULTY WITH NAUSEA AND VOMITING. THIS MEDICATION SHOULD BE AVOIDED Scheduled Cinacalcet HCl (Sensipar) 90 Mg Tablet 90 MG PO HS Magnesium Oxide (Magnesium) 400 Mg Capsule 400 MG PO AM Pantoprazole DR (Protonix) 40 Mg Tablet 40 MG PO DAILY PredniSONE-Expunged Drug, Do Not Renew! (PredniSONE-Expunged Drug, Do Not Renew! ) 10 Mg Tab 15 MG PO AM TAKE WITH FOOD Ranitidine (Ranitidine) 150 Mg Capsule 150 MG PO BID Ranitidine 150 MG Tablet (Zantac 150 MG Tablet) 150 Mg Tab 150 MG PO DAILY Sevelamer Carbonate (Renvela) 800 Mg Tablet 800 MG PO TID Tacrolimus-Expunged Drug, Do Not Renew! (Prograf-Expunged Drug, Do Not Renew!) 0.5 Mg Capsule 2 MG PO BID DOSE=0.05MG/KG (NO HT/WT AVAILABLE AT TIME OF ENTRY) Miscellaneous Medications ([Levaquin]) Take one more dose 10/21, then stop General Time Seen by MD: 08:22 Chief Complaint Chest pain Hx Obtained From: Patient Arrived By: Ambulance Sudden in Onset?: Yes Onset Occurred: Just prior to arrival Symptom Duration: Since onset Location: : Chest left Quality: Pressure Severity: Current: Mild Associated with: Reports: Shortness of breath Recent Healthcare: Recent doctor visit Similar Sx Previous: Yes Past Medical History Past Medical History Notes: Sees Dr. Lonnie Greer (nephrology) at PCP: Dr. Larios [employer] Consultant: Dr. 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 Thursday, Thursday and Thursday. dialysis thru AV fistula. 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 not currently on any BP medications. 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 Left brachio-cephalic A/V fistula 2. Kidney Biopsy 3. Kidney Transplant Family History HTN Smoking History Never Smoker Social History Drug Use: Denies drug use Other Social History: Good social support, Frequent ED visitor, Local resident Ambulatory Status Independent Review of Systems Respiratory: Reports: Shortness of breath Cardiovascular: Reports: Chest pain Musculoskeletal: Denies: Extremity pain, Joint pain Neurologic: Denies: Change LOC, Dizziness, Lightheaded, Weakness Complete sys rev & neg: except as marked. Physical Exam Physical Exam Notes: Initial Vital Signs Vital Signs (First) Date Time Temp Pulse Resp B/P Pulse Ox O2 Delivery O2 Flow Rate FiO2 11/10/16 08:15 36.8 86 15 127/70 100 Room Air 11/10/16 09:03 2 reviewed Initial VS: Reviewed General/Constitutional: Awake, Alert, Cooperative Distress / Hydration: Positive: Distress mild Respiratory / Chest: Atraumatic, Breath sounds NL, Breath sounds = bilat, No respiratory distress, No rales, No rhonchi, No wheezing Cardiovascular: Heart rate NL, Regular rhythm, Heart sounds NL, No gallop, No murmurs, No rubs Neck: Atraumatic, Supple Abdomen: Atraumatic, Soft, Non-tender Back: Atraumatic, Inspection NL, Full range of motion Lower Extremity / Pelvis / MS: Full range of motion, No swelling, No deformity Skin: Warm, Dry Neurologic: Oriented X3, Speech NL, No motor deficits Head / Eyes: Atraumatic, Normocephalic, PERRL Upper Extremity / MS: Full range of motion fistula in left upper arm Interpretation & Diagnostics Lab Results Interpretation Result Diagram: 11/10/16 0900 11/10/16 0900 Test 11/10/16 09:00 11/10/16 10:31 White Blood Count 2.0th/mm3 (3.8-10.1) Red Blood Count 3.37mil/mm3 (4.40-5.80) Hemoglobin 10.7g/dL (13.8-17.2) Hematocrit 33.0% (41.0-50.0) Mean Corpuscular Volume 97.9fL (81-100) Mean Corpuscular Hemoglobin 31.8pg (27.0-35.0) Mean Corpuscular Hemoglobin Concent 32.4% (32.0-37.0) Red Cell Distribution Width 12.7% (12.3-15.4) Platelet Count 81bil/L (150-400) Neutrophils (%) (Auto) 51.7% (40-74) Lymphocytes (%) (Auto) 33.2% (14-46) Monocytes (%) (Auto) 11.1% (4-12) Eosinophils (%) (Auto) 3.5% (0-5) Basophils (%) (Auto) 0.5% (0-3) Sodium Level 141mEq/L (134-144) Potassium Level 4.1mEq/L (3.5-5.2) Chloride Level 98mEq/L (97-108) Carbon Dioxide Level 27mmol/L (18-29) Blood Urea Nitrogen 26mg/dL (6-20) Creatinine 9.28mg/dL (0.76-1.27) Estimat Glomerular Filtration Rate 7mL/min (>59) Glucose Level 112mg/dL (60-99) Calcium Level 9.4mg/dL (8.5-10.1) Magnesium Level 1.8mg/dL (1.6-2.6) Total Bilirubin 0.4mg/dL (0.0-1.2) Aspartate Amino Transf (AST/SGOT) 15U/L (0-50) Alanine Aminotransferase (ALT/SGPT) 18U/L (0-44) Alkaline Phosphatase 269U/L (25-150) Total Protein 8.0g/dL (6.4-8.4) Albumin 4.2g/dL (3.4-5.0) Lipase 87U/L (13-60) Hold Martin Top Tube Received (Received) Troponin T 0.010ug/L (0.0-0.011) ECG Interpretation ECG Interpretation: non-specific ST changes no change from 10/30/16 Time: 08:42 Interpreted by: ED physician Normal ECG Interpretation: Normal sinus rhythm (rate 76) X-Ray Chest Interpretation Chest Xray Interpretation: IMPRESSION: No acute process. Dictated by: Allyssa Hung M.D. on 11/10/2016 at 9:03 Approved by: Allyssa Hung M.D. on 11/10/2016 at 9:03 View: Portable Interpretation / Wet Read by: Interpret - Radiologist Re-Eval/Medical Decision Med Decision/Clinical Course Patient arrives with several weeks of ongoing discomfort in his chest, he notes that it is worse after meals, it is not exertional in nature. It seems unlikely to be acute coronary syndrome or pulmonary embolism. It should be noted that he had a CT angiogram of his chest within the past week at an outside facility which was negative for pulmonary embolism. His EKG and troponins are unremarkable. He had a mild elevation of his lipase without classic signs or symptoms of pancreatitis. He also had complete relief of symptoms after getting viscous lidocaine. I suspect that this may be gastric pathology. He does not have an emergent medical condition is stable for discharge. We will increase his ranitidine and add Protonix. He already has a close follow-up scheduled with his PCP. Strict return and follow-up precautions are given. Re-Evaluation/Progress : Time of Eval: 10:20 Patient Status: Pain improved Re-Evaluation/Progress Note: Pt rechecked. Informed of normal chest x-ray. 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 Workup today is unremarkable. Pain went way after viscous lidocaine. Counseled Regarding: Diagnosis, Lab results, Need for follow-up, When/why to return to ED Discharge & Departure Primary Impression: Chest pain Chest pain type: unspecified Qualified Code: R07.9 - Chest pain, unspecified Disposition: Home Discharge Condition All VS Reviewed: Yes Condition: Stable Additional Instructions: Thank you for entrusting us with your care today. I am sending you home with Protonics and Ranitidine. Eat a bland diet for the next few weeks and avoid spicy foods. Your lipase is slightly elevated, which could indicate pancreatitis. However, your other symptoms are not indicative of this. Follow up with your primary care physician next week. Do not hesitate to return to the Emergency Department if you experience any new or worsening symptoms including abdominal pain, fevers, vomiting, difficulty breathing or increased chest pain. I hope you feel better soon! Referrals: Ravi Larios MD (PCP) Jerardo Osullivan Attestation Portion of this note were transcribed by Beatrice Woods. I, Dr. Garcia, personally performed the history, physical exam, and medical decision-making: I reviewed and confirmed the accuracy for the information in the transcribed note. Signed by: sissy Rosario, 11/10/16 0900 copies to: Jerardo Osullivan DO; Ravi Larios MD, Timothy S DO November 10, 2016 08:23 Beatrice Woods November 10, 2016 08:33
[2016-11-10] MEDS ORDERED: Ondansetron 2 mg/mL 2 mL Inj IVPUSH ONE (08:40)
[2016-11-10 09:03] VITALS: BP 118/48; PULSE 95; RESP 16; O2SAT 100
--- NOTE | 2016-11-10 09:05 | DRSVH ---
PROCEDURE: X-RAY CHEST ONE VIEW, PORTABLE ([id number]) INDICATIONS: chest pain, dyspnea TECHNIQUE: One view of the chest was acquired. COMPARISON: [facility], CR, CHEST 2VW, 06/28/2014, 19:05. [facility], CR, XR CHEST 1VW (PORTABLE), 10/30/2016, 10:58. FINDINGS: Surgical changes and devices: None. Lungs and pleura: No pleural effusions or pneumothorax. Lungs are clear. Mediastinum: Mediastinal contours appear normal. Heart size is normal. Bones and chest wall: No suspicious bony lesions. Overlying soft tissues appear unremarkable. IMPRESSION: No acute process. Dictated by: Allyssa Hung M.D. on 11/10/2016 at 9:03 Approved by: Allyssa Hung M.D. on 11/10/2016 at 9:03
[2016-11-10 09:15] VITALS: BP 107/55; PULSE 82; RESP 14; O2SAT 100
[2016-11-10 09:15] LABS: BASOPHILS % (AUTO) 0.5 % (0-3); EOSINOPHILS % (AUTO) 3.5 % (0-5); MONOCYTES % (AUTO) 11.1 % (4-12); Mean Corpuscular Hemoglobin 31.8 pg (27.0-35.0); Mean Corpuscular Volume 97.9 fL (81-100); NEUTROPHILS % (AUTO) 51.7 % (40-74); Platelet Count 81 bil/L (150-400)
[2016-11-10] MEDS ORDERED: fentaNYL-PF 50 mCg/mL 2 mL Inj IVPUSH PRN (09:45)
[2016-11-10 09:47] LABS: TROPONIN T 0.01 ug/L (0.0-0.011)
[2016-11-10 09:58] LABS: Magnesium 1.8 mg/dL (1.6-2.6)
[2016-11-10] MEDS ORDERED: PANT40TA2 PO (11:45)
[2016-11-10] MEDS ORDERED: RANI150C4 PO (11:45)
[2016-11-10 12:01] VITALS: BP 104/61; PULSE 81; RESP 18; O2SAT 100
== END 2016-11-10 12:01 | disposition home or self-care (01) ==
LOC: SED 08:07 → EDBD 08:07 → SED 12:01
DX: R07.89 Other chest pain (principal); R06.02 Shortness of breath; I12.9 Hypertensive chronic kidney disease with stage 1 through stage 4 chronic kidney disease, or unspecified chronic kidney disease; N18.9 Chronic kidney disease, unspecified; Z99.2 Dependence on renal dialysis; Z88.5 Allergy status to narcotic agent
CPT/HCPCS: 36415; 71010; 80053; 83690; 83735; 84484; 85025; 93005; 96374; 99285; J2405